=== PATIENT | male | born 1950 | race African-American/Black ===

== ENCOUNTER 2021-08-22 08:16 | Day surgery (SDC) | payer OTHER, BC ==
[2021-08-20 15:49] VITALS: BMI 33.1
[2021-08-22] MEDS ORDERED: PROPOFOL 20 ML ONE (09:37)
[2021-08-22 10:56] VITALS: BP 120/80; PULSE 80; TEMP 97.7
== END 2021-08-22 11:05 | disposition home or self-care (01) ==
LOC: FASU-ENDO 08:16
PROVIDERS: ATTEND Internal Medicine Gastroenterology
PROC: 0DJD8ZZ Inspection of Lower Intestinal Tract, Via Natural or Artificial Opening Endoscopic (ICD-10-PCS; principal; 2021-08-22 09:46)
DX: Z86.010 Personal history of colon polyps (principal); Z83.71 Family history of colonic polyps; K57.30 Diverticulosis of large intestine without perforation or abscess without bleeding